=== PATIENT | male | born 1990 | race African-American/Black ===

== ENCOUNTER 2018-01-06 09:30 | Emergency (ER) | payer SELFPAY ==
[~2018-01-06] VITALS: Ht 193 cm; Wt 97.7 kg
[2018-01-06 12:15] VITALS: BP 131/71
== END 2018-01-06 12:15 | disposition home or self-care (01) ==
LOC: EMS 09:32
DX: S62.302G Unspecified fracture of third metacarpal bone, right hand, subsequent encounter for fracture with delayed healing (principal); Z88.8 Allergy status to other drugs, medicaments and biological substances; X58.XXXD Exposure to other specified factors, subsequent encounter
CPT/HCPCS: 99284